=== PATIENT | male | born 1950 | race Caucasian/White ===

== ENCOUNTER 2022-06-13 12:50 | Inpatient (IN) | payer MEDICARE ==
[~2022-06-13] VITALS: Ht 167.6 cm; Wt 63.8 kg
[~2022-06-13 12:50] MED LIST: ASPI-1450 PO; ATOR40TA28 PO; LOSA-381 PO
[2022-06-13 13:08] LABS: BASOPHILS % (AUTO) 0.3 % (0.0-2.0); EOSINOPHILS % (AUTO) 0.9 % (1.0-6.0); HEMATOCRIT 41.1 % (41-53); HEMOGLOBIN 13.8 g/dL (13.5-17.5); LYMPHOCYTES # (AUTO) 0.9 K/uL (1.0-4.8); LYMPHOCYTES % (AUTO) 20.8 % (22.0-44.0); MEAN CORPUSCULAR HEMOGLOBIN 31.2 pg (26.0-34.0); MEAN CORPUSCULAR HGB CONC 33.5 G/dL (31.0-37.0); MEAN CORPUSCULAR VOLUME 93 fL (80-100); MONOCYTES # (AUTO) 0.5 K/uL (0.1-1.0); MONOCYTES % (AUTO) 10.8 % (2.0-9.0); NEUTROPHILS % (AUTO) 67.2 % (40.0-70.0); PLATELET COUNT (AUTO) 213 K/uL (150-450); RED BLOOD CELL COUNT(AUTO) 4.42 MIL/uL (4.50-5.90); RED CELL DISTRIBUTION WIDTH 12.8 % (11.5-14.5)
[2022-06-13 13:20] LABS: PROTHROMBIN TIME 11.1 SEC (9.4-11.6)
[2022-06-13 13:25] LABS: ANION GAP 7 mmol/L (8-16); B-TYPE NATRIURETIC PEPTIDE 15 pg/mL (0-100); CALCIUM, TOTAL 9.2 mg/dL (8.8-10.5); CARBON DIOXIDE 27 mmol/L (22-29); CHLORIDE 99 mmol/L (98-107); CREATININE 0.95 mg/dL (0.60-1.30); GLOMERULAR FILTR. RATE CALC > 60 mL/min (>60); GLUCOSE,RANDOM 367 mg/dL (70-110); POTASSIUM 4.8 mmol/L (3.5-5.1); SODIUM SERUM 133 mmol/L (136-145); UREA NITROGEN, BLOOD 9 mg/dL (7-18)
[2022-06-13 13:27] LABS: AMMONIA 45 umol/L (11-32)
[2022-06-13 13:31] LABS: ALANINE AMINOTRANSFERASE 27 U/L (12-78); ALBUMIN 3.9 g/dL (3.4-5.0); BILIRUBIN,TOTAL 0.5 mg/dL (0.1-1.0); TOTAL PROTEIN, SERUM 7.2 g/dL (6.4-8.2)
[2022-06-13 13:41] LABS: ALKALINE PHOSPHATASE 73 U/L (46-116); ASPARTATE AMINOTRANSFERASE 18 U/L (15-37)
[2022-06-13] MEDS ORDERED: CLOPIDOGREL BISULFATE 75 MG TABLET PO ONE ×2 (13:45→14:15)
[2022-06-13] MEDS ORDERED: ASPIRIN 81 MG CHEWABLE TABLET PO ONE (13:45)
[2022-06-13 14:06] LABS: COVID AG,FIA SOURCE NASOPHARYNGEAL
[2022-06-13 14:14] LABS: APPEARANCE,URINE CLEAR (CLEAR); BILIRUBIN,URINE NEGATIVE (NEGATIVE); GLUCOSE, URINE (UA) >=1000 mg/dL (NEGATIVE); KETONES,URINE NEGATIVE (NEGATIVE); LEUKOCYTE ESTERASE ,URINE NEGATIVE (NEGATIVE); NITRATE,URINE NEGATIVE (NEGATIVE); OCCULT BLOOD,URINE NEGATIVE (NEGATIVE); PH,URINE 7.5 (5.0-8.0); PROTEIN,URINE NEGATIVE (NEGATIVE); SPECIFIC GRAVITIY, URINE 1.035 (1.003-1.030); UROBILINOGEN,URINE <=1.0 mg/dL (<=1.0)
[2022-06-13 14:20] LABS: AMPHET/METH SCREEN,URINE NEGATIVE (NEGATIVE); BARBITURATE SCREEN, URINE NEGATIVE (NEGATIVE); BENZODIAZEPINES SCREEN,URINE NEGATIVE (NEGATIVE); CANNABINOID SCREEN,URINE NEGATIVE (NEGATIVE); COCAINE SCREEN,URINE NEGATIVE (NEGATIVE); METHADONE SCREEN, URINE NEGATIVE (NEGATIVE); OPIATE SCREEN,URINE NEGATIVE (NEGATIVE); PHENCYCLIDINE SCREEN,URINE NEGATIVE (NEGATIVE)
[2022-06-13 14:28] LABS: BACTERIA,URINE None Seen /HPF (None Seen); RBC,URINE None Seen /HPF (0-2); SQUAMOUS EPITHELIAL CELL,UR None Seen /LPF (None Seen); WBC,URINE None Seen /HPF (0-5)
[2022-06-13] MEDS ORDERED: ONDANSETRON HCL 4 MG/2 ML VIAL IVP PRN (15:00)
[2022-06-13] MEDS ORDERED: ACETAMINOPHEN 325 MG TABLET PO PRN (15:00)
[2022-06-13 15:04] LABS: HEMOGLOBIN A1C 9.7 % (3.8-5.6)
[2022-06-13 16:33] VITALS: BP 148/76
[2022-06-13] MEDS: HEPARIN SODIUM,PORCINE 5,000 UNITS/ML VIAL SQ SCH (16:53)
[2022-06-13] MEDS: AmLODIPine BESYLATE 5 MG TABLET PO SCH (16:54)
[2022-06-13] MEDS: ATORVASTATIN CALCIUM 40 MG TABLET PO SCH (16:54)
[2022-06-13] MEDS ORDERED: GLUCAGON,HUMAN RECOMBINANT 1 MG VIAL IM PRN (19:30)
[2022-06-13] MEDS ORDERED: INSULIN LISPRO 100 UNITS/ML SQ PRN (19:30)
[2022-06-13] MEDS ORDERED: DEXTROSE 50%-WATER 25 GM/50 ML SYRINGE IVP PRN (19:45)
[2022-06-13 20:00] VITALS: BP 143/68
[2022-06-13] MEDS: DOCUSATE SODIUM 100 MG CAPSULE PO SCH (20:45)
[2022-06-13] MEDS: INSULIN LISPRO 100 UNITS/ML SQ PRN (21:17)
[2022-06-13 22:06] LABS: GLUCOMETER DEV NAME(LOC) 5S.1B; GLUCOSE,POINT OF CARE 317 MG/DL (70-110)
[2022-06-13 22:06] LABS: GLUCOMETER DEV NAME(LOC) 5S.1B; GLUCOSE,POINT OF CARE 168 MG/DL (70-110)
[2022-06-14] MEDS: HEPARIN SODIUM,PORCINE 5,000 UNITS/ML VIAL SQ SCH ×4 (00:08→23:25)
[2022-06-14 00:15] VITALS: BP 134/64
[2022-06-14 03:40] VITALS: BP 130/74
[2022-06-14] MEDS: INSULIN LISPRO 100 UNITS/ML SQ PRN ×4 (05:55→20:28)
[2022-06-14 06:12] LABS: GLUCOMETER DEV NAME(LOC) 5S.1B; GLUCOSE,POINT OF CARE 175 MG/DL (70-110)
[2022-06-14 07:47] VITALS: BP 116/63
[2022-06-14] MEDS: CLOPIDOGREL BISULFATE 75 MG TABLET PO SCH (08:19)
[2022-06-14] MEDS: ASPIRIN 81 MG CHEWABLE TABLET PO SCH (08:19)
[2022-06-14] MEDS: FAMOTIDINE 20 MG TABLET PO SCH (08:19)
[2022-06-14] MEDS: AmLODIPine BESYLATE 5 MG TABLET PO SCH (08:19)
[2022-06-14] MEDS: DOCUSATE SODIUM 100 MG CAPSULE PO SCH ×2 (08:19→20:24)
[2022-06-14] MEDS: ATORVASTATIN CALCIUM 40 MG TABLET PO SCH (08:19)
[2022-06-14] MEDS: INSULIN GLARGINE,HUM.REC.ANLOG 100 UNITS/ML SQ SCH (08:24)
[2022-06-14 08:58] LABS: CHOL/HDL RATIO 2.8 (4.2-7.3)
[2022-06-14 11:13] VITALS: BP 142/72
[2022-06-14 11:56] LABS: GLUCOMETER DEV NAME(LOC) 5N.1C; GLUCOSE,POINT OF CARE 232 MG/DL (70-110)
[2022-06-14 15:30] VITALS: BP 129/68
[2022-06-14 17:16] LABS: GLUCOMETER DEV NAME(LOC) 5N.1C; GLUCOSE,POINT OF CARE 223 MG/DL (70-110)
[2022-06-14 20:31] LABS: GLUCOMETER DEV NAME(LOC) 5N.1C; GLUCOSE,POINT OF CARE 181 MG/DL (70-110)
[2022-06-14 20:42] VITALS: BP 136/69
[2022-06-15 00:36] VITALS: BP 123/69
[2022-06-15 04:46] VITALS: BP 139/72
[2022-06-15] MEDS: INSULIN LISPRO 100 UNITS/ML SQ PRN ×2 (06:21→12:14)
[2022-06-15 06:31] LABS: GLUCOMETER DEV NAME(LOC) 5S.1B; GLUCOSE,POINT OF CARE 181 MG/DL (70-110)
[2022-06-15 07:47] VITALS: BP 122/69
[2022-06-15] MEDS: DOCUSATE SODIUM 100 MG CAPSULE PO SCH (08:09)
[2022-06-15] MEDS: HEPARIN SODIUM,PORCINE 5,000 UNITS/ML VIAL SQ SCH (08:09)
[2022-06-15] MEDS: ASPIRIN 81 MG CHEWABLE TABLET PO SCH (08:10)
[2022-06-15] MEDS: ATORVASTATIN CALCIUM 40 MG TABLET PO SCH (08:10)
[2022-06-15] MEDS: FAMOTIDINE 20 MG TABLET PO SCH (08:10)
[2022-06-15] MEDS: CLOPIDOGREL BISULFATE 75 MG TABLET PO SCH (08:10)
[2022-06-15] MEDS: AmLODIPine BESYLATE 5 MG TABLET PO SCH (08:10)
[2022-06-15] MEDS: INSULIN GLARGINE,HUM.REC.ANLOG 100 UNITS/ML SQ SCH (08:15)
[2022-06-15 11:46] VITALS: BP 139/67
[2022-06-15 12:36] LABS: GLUCOMETER DEV NAME(LOC) 5N.1C; GLUCOSE,POINT OF CARE 266 MG/DL (70-110)
== END 2022-06-15 13:15 | disposition home health service (06) | DRG 65 ==
LOC: EMS 12:54 → 5S 14:22
PROVIDERS: ADMIT Internal Medicine; ATTEND Internal Medicine
DX: I63.9 Cerebral infarction, unspecified (principal); I69.354 Hemiplegia and hemiparesis following cerebral infarction affecting left non-dominant side; E78.5 Hyperlipidemia, unspecified; I10 Essential (primary) hypertension; I25.10 Atherosclerotic heart disease of native coronary artery without angina pectoris; Z20.822 Contact with and (suspected) exposure to COVID-19; E11.649 Type 2 diabetes mellitus with hypoglycemia without coma; Z83.3 Family history of diabetes mellitus; Z79.82 Long term (current) use of aspirin; Z79.899 Other long term (current) drug therapy
CPT/HCPCS: 70496; 70498; 71045; 80053; 80061; 81001; 82140; 82948; 82962; 83036; 83880; 84484; 85025; 85610; 85730; 86850; 86900; 86901; 92610; 93005; 93306; 97112; 97116; 97162; 97166; 97535; 99291; G0378; G0480; J1644; J1815; 36415-L1; 36415-TC; 70450; 70450-TC